=== PATIENT | male | born 1980 | race Caucasian/White ===

== ENCOUNTER 2024-05-23 17:59 | Emergency (ER) | payer OTHER, MEDICAID ==
[~2024-05-23] VITALS: Ht 177.8 cm; Wt 104.0 kg
[2024-05-23 18:11] VITALS: BP 140/79; PULSE 86; RESP 16; TEMP 98.3; O2SAT 95
== END 2024-05-23 19:40 | disposition left against medical advice (07) ==
LOC: ER 17:59
DX: M79.89 Other specified soft tissue disorders (principal); Z53.21 Procedure and treatment not carried out due to patient leaving prior to being seen by health care provider